=== PATIENT | male | born 1965 | race African-American/Black ===

== ENCOUNTER 2017-11-28 23:10 | Emergency (ER) | payer MEDICAID ==
[~2017-11-28] VITALS: Ht 160 cm; Wt 76.0 kg
[2017-11-29] MEDS ORDERED: HYDROCODONE/ACETAMINOPHEN 5/325MG TABLET PO ONE (01:15)
[2017-11-29 01:27] VITALS: BP 107/62
== END 2017-11-29 01:48 | disposition home or self-care (01) ==
LOC: ER 23:10
DX: M54.5 Low back pain (principal); G89.29 Other chronic pain; I10 Essential (primary) hypertension
CPT/HCPCS: 99282